=== PATIENT | male | born 1965 | race Caucasian/White ===

== ENCOUNTER 2020-03-08 09:58 | Inpatient (IN) | payer OTHER ==
[~2020-03-08] VITALS: Ht 162.6 cm; Wt 98.4 kg
[2020-03-08] MEDS ORDERED: NORVASC 2.5 MG2.5 M1 PO (12:12)
[2020-03-08] MEDS ORDERED: LISINOPRIL10 MG PO (12:14)
[2020-03-08] MEDS ORDERED: KEPPRA 500 MG500 M1 PO (12:15)
[2020-03-08] MEDS ORDERED: LIPITOR10 MG PO (12:17)
[2020-03-08] MEDS ORDERED: AMLODIPINE PO (12:21)
[2020-03-08 13:22] VITALS: BP 136/91
[2020-03-08 20:15] VITALS: BP 133/84
[2020-03-09 05:33] LABS: HEMATOCRIT 46.3 % (42.0-52.0); MCH 31.9 pg (26.0-34.0); MCHC 34.5 g/dL (28.0-37.0); MCV 92.6 fL (80.0-100.0); RDW 13.9 % (10.5-14.5); WBC 9.3 thou/uL (4.0-11.0)
[2020-03-09 06:02] LABS: CALCIUM 9.5 mg/dL (8.5-10.1); CREATININE 1.4 mg/dL (0.7-1.3)
[2020-03-09 07:50] VITALS: BP 127/89
[2020-03-09 20:13] VITALS: BP 144/85
[2020-03-10 08:00] VITALS: BP 155/109
[2020-03-10 19:20] VITALS: BP 140/90
[2020-03-11 08:00] VITALS: BP 142/101
[2020-03-11 20:00] VITALS: BP 138/93
[2020-03-12 05:37] LABS: ALBUMIN 3.6 g/dL (3.4-5.0); CREATININE 1.4 mg/dL (0.7-1.3); PHOSPHORUS 3.2 mg/dL (2.5-4.9); POTASSIUM 3.7 mmol/L (3.5-5.1)
[2020-03-12 07:38] VITALS: BP 149/89
[2020-03-12 19:21] VITALS: BP 140/97
[2020-03-13 08:16] VITALS: BP 147/94
[2020-03-13 19:50] VITALS: BP 131/85
[2020-03-14 07:15] VITALS: BP 137/90
[2020-03-14 19:25] VITALS: BP 124/73
[2020-03-15 08:00] VITALS: BP 157/84
[2020-03-15 13:17] VITALS: BP 157/84
[2020-03-15 19:46] VITALS: BP 141/87
[2020-03-16 08:00] VITALS: BP 152/93
[2020-03-16 19:36] VITALS: BP 140/75
[2020-03-17 08:00] VITALS: BP 118/84
--- NOTE | 2020-03-17 16:33 | PLAN ---
[facility] [place] [address] REHAB UNIT PLAN OF CARE Name: CARIDAD REGAN Room #: 506-1 ADM IN M.R.#: [id number] Admission: 03/08/20 Attend Phys: Jimbo Ochoa MD Discharge: Date of : 67 Report #: [id number] THIS REPORT FOR: cc: Darrell Barclay MD, Joe A. MD Smithson,Jimbo Del Toro MD ~ DATE OF SERVICE: 03/10/2020 SUBJECTIVE: The patient is seen today. I agree with the progress note as documented. He was admitted from an outside hospital to the acute inpatient rehabilitation alexandra at [facility]. He had sustained an intracranial hemorrhage with hypertension, noted to be a right basal ganglia, intraparenchymal hemorrhage. He has left sided hemiparesis, upper extremity greater than lower extremity with left hemisensory decrease and definite visual perceptual and safety issues with some decreased insight into his deficits. Functionally, he is contact guard for transfers. He was max assist 2 to ambulate 20 feet with a front-wheeled walker. We are working with him in front of the mirror on standing balance and visual perceptual abilities. In occupational therapy, moderate assistance, upper body dressing, max assist, lower body dressing. He is working in speech therapy as well. He is on a pureed with thin liquid diet and visual perceptual/cognitive issues are being further evaluated. ASSESSMENT: 1. Right basal ganglia intraparenchymal hemorrhage. 2. Left-sided hemiparesis. 3. Left hemisensory deficit with some neglect. 4. Dysphagia, on pureed solids. 5. Hypertension. 6. Hyperlipidemia. PLAN: The overall plan of care is based on the preadmission screen and information garnered from therapy assessments. 1. Estimated length of stay is probably 14-21 days. 2. Medical prognosis is reasonably good. 3. Anticipated interventions include the interdisciplinary acute inpatient rehabilitation program. 4. Anticipated functional outcomes would be for the patient to improve as far as transfers, mobility, ADLs, cognition, communication, swallowing, so he can hopefully return back to the home setting. 5. Discharge destination would be back home with his mother. She is retired. They live in a mobile home. I did discuss some of the functional issues that he has and his deficits and laid out some realistic projections for her at this time. [address] [address] REHAB UNIT PLAN OF CARE Name: CARIDAD REGAN Room #: 506-1 ADM IN M.R.#: [id number] Admission: 03/08/20 Attend Phys: Jimbo Ochoa MD Discharge: Date of : 67 Report #: [id number] 6. Expected therapy by discipline includes PT, OT and speech 1 hour per day each five days a week throughout the duration of the acute inpatient rehabilitation stay. The patient's prognosis for significant practical improvement within a reasonable period of time appears good. Given the patient's complex medical condition and risk of further medical complication, rehabilitation services could not be safely provided at a lower level of care such as a shelter facility. <ELECTRONICALLY SIGNED> By: Jimbo Ochoa MD 03/17/20 1633 [id number] [id number] Jimbo Ochoa MD /nt
[2020-03-17 20:00] VITALS: BP 129/83
[2020-03-18 08:00] VITALS: BP 146/100
[2020-03-18 19:23] VITALS: BP 98/60
[2020-03-19 08:06] VITALS: BP 129/78
--- NOTE | 2020-03-19 13:43 | HC ---
[facility] [place] [address] CONSULTATION Name: CARIDAD REGAN Diana Room #: 506-1 ADM IN .R.#: [id number] Admission: 03/08/20 Attend Phys: Jimbo Ochoa MD Discharge: Date of : 67 Report #: [id number] THIS REPORT FOR: cc: Darrell Barclay MD, Joe A. MD Deutch,Sergei Moraes. PhD ~ DATE OF SERVICE: 03/11/2020 NEUROBEHAVIORAL STATUS EXAM ATTENDING PHYSICIAN: Jimbo Ochoa MD MYSQL DBA: Sergei Colon, PhD DATE OF CONSULTATION: 03/11/2020 CLINICAL PRESENTATION: The patient is a 54-year-old male admitted to [facility] for a comprehensive inpatient rehabilitation program to improve functional mobility, activities of daily living and self-care secondary to deficits from an intracranial hemorrhage. He reports having been at work when he fell to the ground next to his desk. The patient had a left-sided weakness and numbness. He was taken via emergency medical services to [facility] and was reported to have had a blood pressure of 240/120. The patient was diagnosed with an intraparenchymal hemorrhage in the right basal ganglia. His diagnosis on admission to the hospital included hypertensive emergency, hypokalemia, leukocytosis, hyperlipidemia, decreased activity tolerance, decreased functional mobility and strength, impaired ADLs, decreased balance, dysphagia and dysarthria. His assessment on admission to the rehabilitation unit, was intracranial hemorrhage, hypertension, facial droop, dysphagia and hyperlipidemia. A complete description of his medical condition and history can be found in his medical record. Neuropsychological consultation was requested to provide assistance in the assessment of cognitive and emotional status and provide recommendations and services. Prior to this most recent admission, he was living with his mother in their home. He reports he is a high school graduate. He has 1 child, living in the [place] area. He reports having had 2 other children who live outside the [facility]. The patient is a high school graduate. He is a from the [employer] prior to his shelter. 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 A possible concussion during [place] is reported. [facility] [address] [place] [address] CONSULTATION Name: SHEREENCARIDAD Room #: 506-1 [facility] IN [facility].#: [id number] Admission: 03/08/20 Attend Phys: Jimbo Ochoa MD Discharge: Date of : 67 Report #: [id number] TECHNIQUES UTILIZED: Clinical interview, review of medical records, staff consultation and behavioral observation, mini mental status exam 2, standard version, clock drawing and brief verbal fluency assessment letter and category. EXAMINATION FINDINGS: The patient was alert and cooperative with the assessment. He accurately was able to describe the reason for the admission. There is no evidence of aphasia. His thoughts are logical and goal oriented. There is no evidence of thought disorder. He reports his symptoms to include sleep disturbance and depression. He does not report difficulty with appetite, anxiety, memory, word finding or concentration. Performance on the MMSE 2 brief version was extremely low with a raw score of 12/16, which is a T score of 25 and percentile rank of 1. He was 3/3 for initial registration, 4/5 for orientation to time and 5/[address]. He has 0/3 for immediate recall of 3 items after a brief time delay and distraction. His performance on the MMSE 2 standard version was 21 of 30, which is a T score of 23 and percentile rank of less than 1. He was 1/5 for serial sevens, 2/2 for naming, 1/1 for repetition, 3/3 for auditory comprehension. He could read and follow single command and write a sentence. The patient could not accurately copy a simple geometric design. The patient was unable to accurately copy a simple geometric design. He could not draw a clock or set the hands at a designated time. Evidence of perseveration was noted during clock drawing. He also left out some numbers. Brief category fluency assessment was in the low average range with a raw score of 15, T score of 42, percentile rank of 21. Brief letter fluency was in the low average range with a T score of 38. The patient is presenting with deficits in sustained concentration, immediate recall and visual spatial construction. Evidence of perseveration was also noted. Type of presentation suggests neurocognitive disorder, likely due to vascular disease. 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 Unspecified adjustment disorder with depressed mood. RECOMMENDATIONS: The patient may benefit from a treatment program for depression that would include evaluation for an antidepressant. Outpatient [address] [address] CONSULTATION Name: SHEREENCARIDAD Room #: 506-1 ADM IN M.R.#: [id number] Admission: 03/08/20 Attend Phys: Jimbo Ochoa MD Discharge: Date of : 67 Report #: [id number] psychotherapy that utilizes a cognitive - behaivoral approach. Continued neuropsych testing will be helpful to clarify the severity of cognitive deficits. Currently, assistance will likely be necessary for managing medication, finances and nutrition. Driving should be discontinued upon a more thorough evaluation. Thank you very much for allowing me to provide the consultation on this patient. <ELECTRONICALLY SIGNED> By: Sergei Colon, PhD 03/19/20 1343 12 [id number] Sergei Colon, PhD /nt
[2020-03-19 20:09] VITALS: BP 112/76
[2020-03-20 07:33] LABS: RDW 13.3 % (10.5-14.5)
[2020-03-20 07:35] LABS: HEMATOCRIT 45.6 % (42.0-52.0); HEMOGLOBIN 15.9 gm/dL (14.0-18.0); MCH 32.2 pg (26.0-34.0); MCHC 34.9 g/dL (28.0-37.0); MCV 92.1 fL (80.0-100.0); PLATELET COUNT 229 thou/uL (150-400); RBC 4.95 mil/uL (4.50-6.00); WBC 9.3 thou/uL (4.0-11.0)
[2020-03-20 07:49] LABS: CALCIUM 9.5 mg/dL (8.5-10.1); CREATININE 1.5 mg/dL (0.7-1.3); MAGNESIUM 2.2 mg/dL (1.8-2.4)
[2020-03-20 08:00] VITALS: BP 148/80
[2020-03-20 08:48] LABS: ABSOLUTE NEUTROPHILS 6.3 thou/uL (1.4-8.2); PLATELET ESTIMATE NORMAL
[2020-03-20 20:18] VITALS: BP 102/72
[2020-03-21 07:15] VITALS: BP 142/92
[2020-03-21 20:07] VITALS: BP 107/71
[2020-03-22 08:30] VITALS: BP 122/84
[2020-03-22 20:00] VITALS: BP 116/75
[2020-03-23 08:00] VITALS: BP 138/79
[2020-03-23] MEDS ORDERED: NORVASC10 MG PO (17:27)
[2020-03-23 20:00] VITALS: BP 127/83
[2020-03-24 06:00] VITALS: BP 120/74
[2020-03-24 09:56] VITALS: BP 157/84
[2020-03-24 09:59] VITALS: BP 157/84
[2020-03-24] MEDS ORDERED: LIPITOR10 MG PO (10:32)
[2020-03-24] MEDS ORDERED: KEPPRA 500 MG500 M1 PO (10:32)
[2020-03-24] MEDS ORDERED: LISINOPRIL10 MG PO (10:32)
[2020-03-24 14:02] VITALS: BP 157/84
[2020-03-24 16:40] VITALS: BP 157/84
== END 2020-03-24 12:16 | disposition home health service (06) | DRG 56 ==
PROVIDERS: Hospitalist; Nurse Practitioner; Nurse Practitioner Family; ADMIT Physical Medicine & Rehabilitation; ATTEND Physical Medicine & Rehabilitation
DX: I69.354 Hemiplegia and hemiparesis following cerebral infarction affecting left non-dominant side (principal); I61.2 Nontraumatic intracerebral hemorrhage in hemisphere, unspecified; N17.9 Acute kidney failure, unspecified; R45.851 Suicidal ideations; I16.0 Hypertensive urgency; F32.9 Major depressive disorder, single episode, unspecified; F43.10 Post-traumatic stress disorder, unspecified; R13.10 Dysphagia, unspecified; I12.9 Hypertensive chronic kidney disease with stage 1 through stage 4 chronic kidney disease, or unspecified chronic kidney disease; N18.9 Chronic kidney disease, unspecified; E78.5 Hyperlipidemia, unspecified; Z66 Do not resuscitate; Z20.822 Contact with and (suspected) exposure to COVID-19; F01.50 Vascular dementia, unspecified severity, without behavioral disturbance, psychotic disturbance, mood disturbance, and anxiety; F43.21 Adjustment disorder with depressed mood; B37.9 Candidiasis, unspecified; F43.23 Adjustment disorder with mixed anxiety and depressed mood; R29.810 Facial weakness; Z88.5 Allergy status to narcotic agent; Z88.0 Allergy status to penicillin; Z28.21 Immunization not carried out because of patient refusal
CPT/HCPCS: 10112